=== PATIENT | male | born 1990 | race Caucasian/White ===

== ENCOUNTER 2020-06-02 10:12 | Emergency (ER) | payer SELFPAY ==
[2020-06-02 10:55] VITALS: BP 146/70; PULSE 95; RESP 18; TEMP 36.3; O2SAT 99
--- NOTE | 2020-06-02 11:07 | PC.NURSE ---
During nursing rounds pt and friend not in the room. Provider notified RN that pt is not in the room. Pt and friend left without being seen by a provider.
== END 2020-06-02 11:09 | disposition left against medical advice (07) ==
LOC: ANHED 10:41
PROVIDERS: Emergency Provider Emergency Medicine
DX: M25.531 Pain in right wrist (principal)
CPT/HCPCS: 99199

== ENCOUNTER 2023-04-23 20:54 | Emergency (ER) | payer BC, SELFPAY ==
--- NOTE | ~2023-04-23 | XR_ITS ---
EXAM: XR wrist RT min 3V, XR hand RT 2V DATE: 04/23/2023 21:12 HISTORY: lac from glass window . COMPARISON: 12/17/2016. FINDINGS: Normal mineralization. Old right fifth metacarpal fracture, healed in deformity. No acute fracture or dislocation. No lytic or blastic lesion. Joint spaces are maintained. No erosion or perio steal change. Soft tissues within normal limits. IMPRESSION: No acute osseous finding in the right hand or wrist. No radiopaque foreign body. Reviewed, dictated and finalized at location K. IMPRESSION: No acute osseous finding in the right hand or wrist. No radiopaque foreign body.
[2023-04-23 20:58] VITALS: BP 97/68; PULSE 115; RESP 18; TEMP 36.9; O2SAT 100
--- NOTE | 2023-04-23 22:44 | PC.NURSE ---
patient states he can't wait any longer. patient states he will come back later for evaluation. patient alert and oriented x4.
== END 2023-04-24 01:23 | disposition left against medical advice (07) ==
PROVIDERS: Emergency Provider Emergency Medicine
DX: S61.411A Laceration without foreign body of right hand, initial encounter (principal); W25.XXXA Contact with sharp glass, initial encounter
CPT/HCPCS: 73110; 73120; 99199

== ENCOUNTER 2023-04-24 08:25 | Emergency (ER) | payer BC, SELFPAY ==
--- NOTE | 2023-04-24 08:28 | ED.WOUNDLAC ---
HPI - Wound/Laceration General Chief Complaint: Wound/Laceration Stated Complaint: Right Hand Laceration Time Seen by Provider: 04/24/23 08:28 Source: patient Mode of arrival: ambulatory Limitations: no limitations History of Present Illness HPI narrative: Harjinder is a 33-year-old male patient presenting to the clinic today with complaints of a laceration to his right hand/wrist. He reports at around 10:00 a.m. last night he was trying to open up a wood door with a glass window and he put his hand through the glass window. Has a laceration to the right volar aspect of the wrist over the ulna and the right palm. Bleeding is controlled. Last tetanus was in high school. Related Data Allergies Allergy/AdvReac Type Severity Reaction Status Date / Time No Known Allergies Allergy Verified 04/24/23 08:34 Review of Systems Review of Systems: Pertinent positives per HPI. Patient denies any fever, chills, rash, headache, visual changes, dizziness, cough, runny nose, sore throat, shortness of breath, chest pain, palpitations, nausea, vomiting, diarrhea, constipation, abdominal pain, or any urinary issues. PMFSH Comments At the time of my signature, I reviewed and agree with the nursing past medical, surgical, social, and family history. There is no relevant family history pertinent to the patient complaint. Exam Narrative: General: Well-developed, well nourished, in no apparent distress Head: Normocephalic, atraumatic. Cardio: Regular rate and rhythm, s1 and s2 normal, no murmur appreciated. Resp: Clear to auscultation bilaterally, no rhonchi, rales, wheezing or rubs. Integumentary: [place], warm, and dry, 2 cm laceration to the volar ulnar aspect of the right wrist with moderate gaping and a flap laceration to the right palm measuring about 1cm, no redness or purulent drainage, no foreign body visualized or palpable Course Course Emergency Course: Portions of this record may have been created with voice recognition software. Level of Care: Express Care Visit Vital Signs Vital signs: Vital signs reviewed Procedures Laceration Laceration 1: Date: 04/24/23 Site: hand (Wrist) Side (If applicable): right Size (cm): 3 Description: linear (Wrist) and flap (Palm) Depth: simple, single layer Local Anesthetic: lidocaine 1% Amount of anesthesia used (mL): 4 Pre-repair: wound explored, irrigated and irrigated extensively ====== Skin Level ====== Skin layer closed with: nylon Size (cm): 4-0 Number of sutures: 5 Technique: simple, interrupted ====== Subcutaneous Layer ====== ====== Muscle Layer ====== ====== Tendon Layer ====== Dressing: Verbal consent obtained for laceration repair. Risk and benefits explained and patient voiced understanding. Area was cleansed with Betadine and a 25 gauge needle was then used to instill (4) ml of 1% lidocaine without epi into the wound edges. Area was prepped and draped using sterile technique. A 4-0 suture on a p needle was used to place (5) interrupted sutures bringing the wound edges together- well approximated. The 4 interrupted sutures were placed and the wrist and 1 interrupted suture was placed in the palm for wound closure. Patient tolerated procedure well. Triple antibiotic and sterile dressing applied. MDM - Wound/Laceration MDM Narrative Medical decision making narrative: At the time of visit patient is resting on the exam table. Patient has a laceration to the volar aspect of the ulnar wrist and the right palm. Tetanus was updated in the clinic today. Laceration procedure performed closing these wounds. Patient tolerated fairly well. Supportive measures were discussed with the patient he voiced understanding discharge instructions agrees to treatment plan. Differential Diagnosis Differential diagnosis: Likely laceration, abscess, abrasion, avulsion of skin and o
[2023-04-24 08:34] VITALS: BP 135/64; PULSE 88; RESP 16; TEMP 36.7; O2SAT 99
[2023-04-24] MEDS: TETANUS,DIPHTHERIA,AC PERTUSSIS ADULT (0.5 ML) BOOSTRIX IM (09:06)
== END 2023-04-24 09:20 | disposition home or self-care (01) ==
PROVIDERS: Emergency Provider Nurse Practitioner Family
DX: S61.511A Laceration without foreign body of right wrist, initial encounter (principal); W25.XXXA Contact with sharp glass, initial encounter; Z23 Encounter for immunization
CPT/HCPCS: 12002; 90471; 90715; 99213; G0463

== ENCOUNTER 2023-05-08 09:41 | Emergency (ER) | payer BC, SELFPAY ==
[2023-05-08 10:17] VITALS: BP 139/87; PULSE 83; RESP 16; TEMP 37.1; O2SAT 100
== END 2023-05-08 10:40 | disposition left against medical advice (07) ==
PROVIDERS: Emergency Provider Internal Medicine Hematology & Oncology; PCP Emergency Medicine
DX: Z53.21 Procedure and treatment not carried out due to patient leaving prior to being seen by health care provider (principal)
CPT/HCPCS: 99199

== ENCOUNTER 2024-08-07 10:06 | Emergency (ER) | payer BC, SELFPAY ==
--- NOTE | ~2024-08-07 | XR_ITS ---
EXAMINATION: XR chest 2V DATE: 08/07/2024 10:52 INDICATION: Chest pain. TECHNIQUE: Frontal and lateral views of the chest were obtained. COMPARISON: None. FINDINGS: There is no pneumonia, pleural effusion, or pneumothorax. The heart size is normal. There i s mild chronic anterior wedging of multiple vertebral bodies. IMPRESSION: 1. No acute cardiopulmonary disease. Reviewed, dictated and finalized at location A. ER EXPLOSION
--- NOTE | 2024-08-07 10:08 | ECG_ITS ---
Test Date: 2024-08-07 10:17:16 Measurements Intervals [place] Rate: 95 P: 50 CA: 136 QRS: 11 QRSD: 84 T: 55 QT: 354 QTc: 445 Interpretive Statements SINUS RHYTHM No previous ECG available for comparison Electronically Signed On 08-07-2024 14:27:55 [employer]IMP [employer]TON[employer] MACHINE OPERATOR by Kayden Mclean M.D.
[2024-08-07 10:17] VITALS: BP 141/91; PULSE 94; RESP 18; TEMP 36.4; O2SAT 100
--- NOTE | 2024-08-07 12:02 | PC.NURSE ---
Patient walked out of department
[2024-08-07 12:17] VITALS: BP 126/74; PULSE 82; RESP 17; O2SAT 100
[2024-08-07] MEDS: ASPIRIN 81 MG CHEWABLE TABLET 324 MG PO (12:18)
[2024-08-07 12:20] LABS: Basophils Absolute Auto 0.1 K/mm3 (0.0-0.1); Basophils Percent Auto 0.5 % (0.2-1.2); Eosinophils Absolute Auto 0.3 K/mm3 (0-0.3); Hematocrit 44.1 % (42.0-52.0); Hemoglobin 14.2 g/dL (14.0-18.0); Immature Granulocyte Absolute 0.03 K/mm3 (0.00-0.031); Immature Granulocyte Percent A 0.3 % (0-0.5); Lymphocytes Absolute Auto 3.02 K/mm3 (0.9-3.2); Mean Corpuscular HGB Conc 32.2 g/dl (32-36); Mean Corpuscular Hemoglobin 29.2 pg (26-34); Mean Corpuscular Volume 90.6 fl (80-100); Mean Platelet Volume 9.6 fl (7.4-10.4); Monocytes Absolute Auto 1.1 K/mm3 (0.1-0.6); Monocytes Percent Auto 10.1 % (2.6-8.5); Neutrophils Percent Auto 57.1 % (45.5-73.1); Platelet Count Result 316 k/mm3 (150-375); Red Blood Count 4.87 M/mm3 (4.6-6.20); Red Cell Distribution Width 12.8 % (11.5-14.5); White Blood Count 10.4 K/mm3 (4.5-10.0)
--- NOTE | 2024-08-07 12:21 | ED.CHESTPAIN ---
HPI - Chest Pain General Chief Complaint: Chest Pain <Petrona Paris FIRE HAZARD INSPECTOR - Last Filed: 08/07/24 13:21> Stated Complaint: Chest pain <Petrona Paris APRN - Last Filed: 08/07/24 13:21> Time Seen by Provider: 08/07/24 12:10 <Petrona Paris FIRE HAZARD INSPECTOR - Last Filed: 08/07/24 13:21> Focused HPI: Patient is a 34-year-old male who presents to the ER with chest pain. 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 Pt went to a rehab facility in [place] who had been filling his medication but he is now out. His mother reports they are willing to refill his medication except they are concerned about his chest pain so they wanted him to get medically cleared 1st before refilling the medication. Patient reports he used last around 8:00 a.m. at night. He endorses anxiety this time, along with his generalized chest pain. Patient denies shortness of breath, fevers, abdominal pain. GENERAL: Well-appearing, well-nourished, and in no acute distress. HEAD: Normocephalic, atraumatic. CHEST: Clear to auscultation. ?No respiratory distress. HEART: Regular rate and rhythm.? NEURO: ?Alert and oriented x3. Patient screened in triage and initial orders placed.? ?Additional care and disposition to be based upon?diagnostic testing and treatment. <Petrona Paris APRN - Last Filed: 08/07/24 13:21> History of Present Illness HPI narrative: Concur with the above with the following additions/corrections: Patient states his chest pain occurred 2 hours prior to arrival and lasted only a few minutes and resolved. No associated shortness of breath, nausea, vomiting, or diaphoresis. He called his insurance company to but rehabilitation options, he mentions he had chest pain was advised to present to the emergency department. Last used methamphetamines approximately 12 hours prior to arrival. Patient states he had previously undergone inpatient rehab through [facility] approximately 1 year ago for 30 days although he did relapse upon discharge within week. He does not have a primary care physician. In regards to risk factors for cardiac etiology: no hypertension, no hyperlipidemia, no prior myocardial infarction/ TIA/ CVA. No family history in first-degree relative before the age of 65, no diabetes mellitus. Not obese. He does smoke 1 pack per day. <Preethi Dukes MD - Last Filed: 08/07/24 22:03> Related Data Allergies/Adverse Reactions: Allergies Allergy/AdvReac Type Severity Reaction Status Date / Time No Known Allergies Allergy Verified 04/24/23 08:34 <Petrona Paris APRN - Last Filed: 08/07/24 13:21> [facility] Past Medical History Medical History: Medical History Tetanus toxoid vaccination administered 1-4 years ago 2022 <Petrona Paris APRN - Last Filed: 08/07/24 13:21> Social History Social History: Social History Smoking packs per day: 1 Smoking cigarettes per day: 20.0 Smoking status: Current every day smoker Alcohol intake: former Substance use: current Substance use type: methamphetamine Occupation/Education: occupation <Petrona Paris APRN - Last Filed: 08/07/24 13:21> Exam Narrative: GENERAL: Well-appearing, well-nourished, and in no acute distress. HEAD: Normocephalic, atraumatic. EYES: Non injected, non icteric ENT: Nares clear, no rhinorrhea or epistaxis. NECK: Supple. CHEST: Speaking in full sentences. No respiratory distress. HEART: Regular rate and rhythm. . ABDOMEN: Soft, nondistended. EXTREMITIES: Normal range of motion. No lower extremity edema. SKIN: Warm, dry, no rash. NEURO: No focal deficits. Alert and oriented x3. PSYCH: Normal mood and affect. <Preethi Dukes MD - Last Filed: 08/07/24 22:03> Course Vital Signs Vital signs: Vital Signs Temperature 97.6 F 08/07/24 10:17 Pulse Rate 94 08/07/24 10:17 Respiratory Rate 18 08/07/24 10:17 Blood Pressure 141/91 H 08/07/24 10:17 Pulse Oximetry 100 08/07/24 10:17 Oxygen Delivery Room Air 08/07/24 10:17 Temperature 98.4 F 08/07/24 14:31 Pulse Rate 88 08/07/24 14:31 Respiratory Rate 20 08/07/24 14:31 Blood Pressure 132/82 08/07/24 14:31 Pulse Oximetry 99 08/07/24 14:31 Oxygen Delivery Room Air 08/07/24 12:32 <Petrona Paris, FIRE HAZARD INSPECTOR - Last Filed: 08/07/24 13:21> Vital Signs Temperature 97.6 F 08/07/24 10:17 Pulse Rate 94 08/07/24 10:17 Respiratory Rate 18 08/07/24 10:17 Blood Pressure 141/91 H 08/07/24 10:17 Pulse Oximetry 100 08/07/24 10:17 Oxygen Delivery Room Air 08/07/24 10:17 Temperature 98.4 F 08/07/24 14:31 Pulse Rate 88 08/07/24 14:31 Respiratory Rate 20 08/07/24 14:31 Blood Pressure 132/82 08/07/24 14:31 Pulse Oximetry 99 08/07/24 14:31 Oxygen Delivery Room Air 08/07/24 12:32 <Preethi Dukes MD - Last Filed: 08/07/24 22:03> MDM - Chest Pain MDM Narrative Medical decision making narrative: 1320-Ativan ordered to help decrease pt's anxiety. <Petrona Paris, FIRE HAZARD INSPECTOR - Last Filed: 08/07/24 13:21> 1320-Ativan ordered to help decrease pt's anxiety. Patient presents with chest pain a few minutes duration that occurred 2 hours prior to arrival. patient with a history of methamphetamine abuse and use this substance 12 hours prior to arrival. He is interested in quitting and is interested in pursuing an outpatient rehabilitation program but when he called to inquire about the details of this and noted that he had had episode of chest pain he is advised to present to emergency department. In the emergency department he is afebrile with vital signs notable for mild hypertension. <del></del> <del>Roseline:</del> <del>after</del> <del>patient</del> <del>underwent</del> <del>medical</del> <del>screening</del> <del>exam</del> <del>in</del> <del>triage</del> <del>and</del> <del>was</del> <del>roomed,</del> <del>I</del> <del>signed</del> <del>up</del> <del>to</del> <del>see</del> <del>the</del> <del>patient</del> <del>however</del> <del>before</del> <del>evaluating</del> <del>the</del> <del>patient</del> <del>at</del> <del>bedside</del> <del>I</del> <del>was</del> <del>notified</del> <del>that</del> <del>patient</del> <del>and</del> <del>another</del> <del>person</del> <del>started</del> <del>out</del> <del>of</del> <del>the</del> <del>emergency</del> <del>department</del> <del>therefore</del> <del>I</del> <del>did</del> <del>not</del> <del>see</del> <del>or</del> <del>personally</del> <del>evaluate</del> <del>this</del> <del>patient</del> <del>was</del> <del>not</del> <del>involved</del> <del>in</del> <del>their</del> <del>care</del>. Patient did present back to the emergency department after going to the parking lot and his mother intervened. I did talk with patient And noted that the chest pain workup would be completed and we would attempt to address resources and a possible warm handoff or contact information/referrals for outpatient rehabilitation options. Patient had been provided contact information for [employer] ([phone]). patient notes that he had initially provided a urine sample and I did indicate that I had ordered a urine drug screen only to see if potentially his methamphetamine also contained cocaine. however, when patient had left the room the 1st time it appears that this urine sample was discarded and therefore not processed. HEART SCORE History 2 highly suspicious 1 moderately suspicious 0 slightly suspicious History score [address] depression/elevation not due to LBBB, LVH, or digoxin [address] depression but LBBB, LVH, nonspecific repolarization changes 0 normal ECG score 0 Age 2 >/= 65 1 45-64 0 <45 Age score 0 Risk factors (HTN, hypercholesterolemia, DM, obesity with BMI >30, current smoker or cessation </=3mo), positive fam hx with parent or sibling with CVD before age 65, atherosclerotic disease (prior PA, PCI/CABG, CVA/TIA, or peripheral arterial disease) 2 >/= 3 risk factors or history of atherosclerotic dz 1 - 1-2 risk factors 0 no known risk factors Risk factor score 1 (smoking) Initial Troponin 2 >3 times normal limit 1 1-3 times normal limit 0 less than or equal to normal limit Troponin score 0. Total HEART Score 1. I reviewed his workup which did show a 2nd troponin that was within normal limits. While attempting to collect resources for outpatient rehabilitation services or other support services including contacting case coordination/ care coordination, I was informed that the patient had left the emergency department again and did not return. <Preethi Dukes MD - Last Filed: 08/07/24 22:03> Differential Diagnosis Differential diagnosis: Likely stable angina, atypical chest pain, st elevation myocardial infarction, chest pain, biliary colic and other ( Drug-induced chest pain/vasospasm) <Preethi Dukes MD - Last Filed: 08/07/24 22:03> Lab Data Attestation: I reviewed the patient's lab results. <Preethi Dukes MD - Last Filed: 08/07/24 22:03> Lab results narrative: Very mild leukocytosis <Preethi Dukes MD - Last Filed: 08/07/24 22:03> Result diagrams: 08/07/24 12:10 08/07/24 12:10 <Petrona Paris APRN - Last Filed: 08/07/24 13:21> Labs: Lab Results 08/07/24 08/07/24 Range/Units 12:10 13:24 WBC 10.4 H (4.5-10.0) K/mm3 RBC 4.87 (4.6-6.20) M/mm3 Hgb 14.2 (14.0-18.0) g/dL Hct 44.1 (42.0-52.0) % MCV 90.6 (80-100) fl MCH 29.2 (26-34) pg MCHC 32.2 (32-36) g/dl RDW 12.8 (11.5-14.5) % Plt Count 316 (150-375) k/mm3 MPV 9.6 (7.4-10.4) fl Immature Gran % (Auto) 0.3 (0-0.5) % Neut % (Auto) 57.1 (45.5-73.1) % Lymph % (Auto) 29.0 (18.3-44.2) % [place] % (Auto) 10.1 H (2.6-8.5) % Eos % (Auto) 3.0 (0-4.4) % Baso % (Auto) 0.5 (0.2-1.2) % Lymph # (Auto) 3.02 (0.9-3.2) K/mm3 [place] # (Auto) 1.1 H (0.1-0.6) K/mm3 Eos # (Auto) 0.3 (0-0.3) K/mm3 Baso # (Auto) 0.1 (0.0-0.1) K/mm3 Abs Immat Gran (auto) 0.03 (0.00-0.031) K/mm3 Absolute Neuts (auto) 6.0 (1.3-6.7) K/mm3 Absolute Nucleated RBC 0.000 (0.0-0.012) K/mm3 Nucleated RBC % 0.0 (0.0-0.2) % PT 14.0 (11.1-14.7) Seconds INR 1.0 APTT 31.0 (22.3-36.8) Seconds Sodium 141 (137-145) mmol/L Potassium 3.9 (3.4-5.0) mmol/L Chloride 103 (98-107) mmol/L Carbon Dioxide 32 H (22-30) mmol/L Anion Gap 6 (4-12) mmol/L BUN 20 (9-20) mg/dL Creatinine 1.10 (0.7-1.3) mg/dL Estim Creat Clear Calc 91 ml/min Estimated GFR > 60 (59 - ) Glucose 108 (65-110) mg/dL Calcium 9.6 (8.4-10.2) mg/dL Total Bilirubin 0.5 (0.2-1.3) mg/dL AST 40 (17-59) U/L ALT 30 (6-50) U/L Alkaline Phosphatase 82 (38-126) U/L Troponin I < 0.012 < 0.012 (0.000-0.034) ng/mL Total Protein 8.0 (6.3-8.2) g/dL Albumin 4.9 (3.5-5.1) g/dL Lipase 48 (23-300) U/L <Petrona Paris, FIRE HAZARD INSPECTOR - Last Filed: 08/07/24 13:21> Lab Results 08/07/24 08/07/24 Range/Units 12:10 13:24 WBC 10.4 H (4.5-10.0) K/mm3 RBC 4.87 (4.6-6.20) M/mm3 Hgb 14.2 (14.0-18.0) g/dL Hct 44.1 (42.0-52.0) % MCV 90.6 (80-100) fl MCH 29.2 (26-34) pg MCHC 32.2 (32-36) g/dl RDW 12.8 (11.5-14.5) % Plt Count 316 (150-375) k/mm3 MPV 9.6 (7.4-10.4) fl Immature Gran % (Auto) 0.3 (0-0.5) % Neut % (Auto) 57.1 (45.5-73.1) % Lymph % (Auto) 29.0 (18.3-44.2) % [place] % (Auto) 10.1 H (2.6-8.5) % Eos % (Auto) 3.0 (0-4.4) % Baso % (Auto) 0.5 (0.2-1.2) % Lymph # (Auto) 3.02 (0.9-3.2) K/mm3 [place] # (Auto) 1.1 H (0.1-0.6) K/mm3 Eos # (Auto) 0.3 (0-0.3) K/mm3 Baso # (Auto) 0.1 (0.0-0.1) K/mm3 Abs Immat Gran (auto) 0.03 (0.00-0.031) K/mm3 Absolute Neuts (auto) 6.0 (1.3-6.7) K/mm3 Absolute Nucleated RBC 0.000 (0.0-0.012) K/mm3 Nucleated RBC % 0.0 (0.0-0.2) % PT 14.0 (11.1-14.7) Seconds INR 1.0 APTT 31.0 (22.3-36.8) Seconds Sodium 141 (137-145) mmol/L Potassium 3.9 (3.4-5.0) mmol/L Chloride 103 (98-107) mmol/L Carbon Dioxide 32 H (22-30) mmol/L Anion Gap 6 (4-12) mmol/L BUN 20 (9-20) mg/dL Creatinine 1.10 (0.7-1.3) mg/dL Estim Creat Clear Calc 91 ml/min Estimated GFR > 60 (59 - ) Glucose 108 (65-110) mg/dL Calcium 9.6 (8.4-10.2) mg/dL Total Bilirubin 0.5 (0.2-1.3) mg/dL AST 40 (17-59) U/L ALT 30 (6-50) U/L Alkaline Phosphatase 82 (38-126) U/L Troponin I < 0.012 < 0.012 (0.000-0.034) ng/mL Total Protein 8.0 (6.3-8.2) g/dL Albumin 4.9 (3.5-5.1) g/dL Lipase 48 (23-300) U/L <Preethi Dukes MD - Last Filed: 08/07/24 22:03> Imaging Data Radiologist's impression: Impressions Chest X-Ray 08/07/24 10:59 IMPRESSION: 1. No acute cardiopulmonary disease. <Preethi Dukes MD - Last Filed: 08/07/24 22:03> ECG Data EKG #1: Attestation: I personally reviewed and interpreted this ECG as follows: <Preethi Dukes MD - Last Filed: 08/07/24 22:03> ECG completion date: 08/07/24 <Preethi Dukes MD - Last Filed: 08/07/24 22:03> ECG completion time: 10:17 <Preethi Dukes MD - Last Filed: 08/07/24 22:03> Interpretation: normal sinus rhythm at a rate of 95 beats per minute. NE interval 136. QRS 84. QT/QTC 354/406. Good R-wave progression across the precordial leads. No T-wave inversions. Normal ECG. <Preethi Dukes MD - Last Filed: 08/07/24 22:03> Discharge Plan Discharge Clinical Impression: Chest pain, Methamphetamine abuse <Petrona Paris APRN - Last Filed: 08/07/24 13:21> Patient Disposition: Elopement After Seen by Prov <Petrona Paris APRN - Last Filed: 08/07/24 13:21> Condition: Stable <Petrona Paris APRN - Last Filed: 08/07/24 13:21> Prescriptions: No Action cephalexin 500 mg capsule 500 mg PO Q12H 7 Days Qty: 14 0RF <Petrona Paris APRN - Last Filed: 08/07/24 13:21> Follow-up/Referrals: Zia Ivey MD [Primary Care Provider] - <Petrona Paris APRN - Last Filed: 08/07/24 13:21>
[2024-08-07 12:30] LABS: Alanine Aminotransferase 30 U/L (6-50); Albumin Level 4.9 g/dL (3.5-5.1); Alkaline Phosphatase 82 U/L (38-126); Anion Gap 6 mmol/L (4-12); Aspartate Amino Transferase 40 U/L (17-59); Bilirubin,Total 0.5 mg/dL (0.2-1.3); Blood Urea Nitrogen 20 mg/dL (9-20); Calcium 9.6 mg/dL (8.4-10.2); Carbon Dioxide 32 mmol/L (22-30); Chloride 103 mmol/L (98-107); Estimated CRCL calculation 91 ml/min; Estimated Glomerular Filt Rate > 60; Glucose 108 mg/dL (65-110); Lipase 48 U/L (23-300); Potassium 3.9 mmol/L (3.4-5.0); Sodium 141 mmol/L (137-145)
[2024-08-07 12:31] VITALS: BP 135/89; PULSE 83; RESP 18; TEMP 37.1; O2SAT 100
[2024-08-07 12:32] VITALS: O2SAT 100
[2024-08-07 12:42] LABS: Troponin I < 0.012 ng/mL (0.000-0.034)
[2024-08-07] MEDS: LORazepam (*CRX) 1 MG TABLET PO (13:37)
[2024-08-07 14:00] LABS: Troponin I < 0.012 ng/mL (0.000-0.034)
[2024-08-07 14:31] VITALS: BP 132/82; PULSE 88; RESP 20; TEMP 36.9; O2SAT 99
--- NOTE | 2024-08-07 15:02 | PC.NURSE ---
Holding on starting IV. Pt is threatening AMA.
--- NOTE | 2024-08-07 15:31 | PCCCNOTE ---
Called to the ED to give pt resources for rehab. Pt left AMA prior to my arrival.
== END 2024-08-07 15:30 | disposition left against medical advice (07) ==
PROVIDERS: Emergency Provider Student in an Organized Health Care Education/Training Program; PCP Emergency Medicine
DX: R07.9 Chest pain, unspecified (principal); F15.10 Other stimulant abuse, uncomplicated; F17.210 Nicotine dependence, cigarettes, uncomplicated
CPT/HCPCS: 36415; 71046; 80053; 83690; 84484; 85025; 85610; 85730; 93005; 99284; A9270